=== PATIENT | female | born 1960 | race Caucasian/White ===

== ENCOUNTER → 2017-06-27 15:51 | Outpatient (CLI) | payer BC | END | disposition home or self-care (01) | LOC: D.US 15:51 | DX: R80.9 Proteinuria, unspecified (principal) ==

== ENCOUNTER 2018-05-26 15:02 | Emergency (ER) | payer BC ==
[~2018-05-26] VITALS: Ht 157.5 cm; Wt 63.6 kg
[2018-05-26 15:32] VITALS: Ht 157.5 cm; Wt 63.6 kg
[2018-05-26] MEDS ORDERED: CIMZIA400 MG/2 M SQ (15:34)
[2018-05-26] MEDS ORDERED: SPIRIVA RESPIMAT4 G1 INH (15:34)
[2018-05-26] MEDS ORDERED: ARAVA10 MG PO (15:34)
[2018-05-26] MEDS ORDERED: SINGULAIR10 MG PO (15:35)
[2018-05-26] MEDS ORDERED: HYZAAR 50-12.51 TAB PO (15:35)
[2018-05-26] MEDS ORDERED: CLARITIN 10 MG10 MG PO (15:35)
[2018-05-26] MEDS ORDERED: LIPITOR10 MG PO (15:36)
[2018-05-26] MEDS ORDERED: LYRICA25 MG PO (15:36)
[2018-05-26 16:02] LABS: BASOPHILS 0.9 % (0-2); EOSINOPHILS 5.5 % (0-7); HEMATOCRIT 40.6 % (36.0-48.0); IMMATURE GRANULOCYTES 0.4 % (0-5); LYMPHOCYTES 29.6 % (15-50); MCH 31.6 pg (26.0-34.0); MCHC 34.5 g/dL (31.0-37.0); MCV 91.6 fL (80.0-100.0); MEAN PLATELET VOLUME 10.5 fL (7.4-10.4); MONOCYTES 11.1 % (2-11); NEUTROPHILS 52.5 % (40-80); PLATELET COUNT 293 10x3/uL (130-400); RBC 4.43 10x6/uL (4.00-5.40); RDW 14.7 % (11.5-14.5); WBC 8.1 10x3/uL (4.8-10.8)
[2018-05-26 16:13] LABS: APPEARANCE CLEAR (CLEAR); BILIRUBIN NEGATIVE (NEGATIVE); COLOR YELLOW (YELLOW); GLUCOSE NEGATIVE (NEGATIVE); KETONE NEGATIVE (NEGATIVE); NITRITE NEGATIVE (NEGATIVE); PROTEIN NEGATIVE (NEGATIVE); UROBILINOGEN NORMAL (NORMAL)
[2018-05-26 16:17] LABS: ALBUMIN 3.6 g/dL (3.4-5.0); BILIRUBIN - TOTAL 0.32 mg/dL (0.2-1.3); CARBON DIOXIDE 31.6 mmol/L (21.0-32.0); CREATININE - SERUM 0.9 mg/dL (0.6-1.3); POTASSIUM - SERUM 3.6 mmol/L (3.5-5.1); PROTEIN - SERUM 7.8 g/dL (6.4-8.2)
[2018-05-26 16:24] LABS: BACTERIA FEW /hpf (NONE SEEN); EPITHELIAL CELLS 0-5 /hpf (0-5); RED CELLS - URINE 0-5 /hpf (0-5); WHITE CELLS - URINE 0-5 /hpf (0-5)
[2018-05-26 16:25] LABS: HYALINE CAST RARE /lpf (NONE SEEN)
[2018-05-26 16:53] LABS: AMYLASE - SERUM 61 U/L (25-115); LIPASE 234 U/L (73-393)
[2018-05-26] MEDS ORDERED: PROTONIX40 MG PO (18:35)
[2018-05-26] MEDS ORDERED: ZOFRAN4 MG PO (18:35)
[2018-05-26 19:08] VITALS: BP 145/90
== END 2018-05-26 19:09 | disposition home or self-care (01) ==
LOC: D.ER 15:02
PROVIDERS: Family Medicine
DX: R10.9 Unspecified abdominal pain (principal); K29.70 Gastritis, unspecified, without bleeding; M54.5 Low back pain; J44.9 Chronic obstructive pulmonary disease, unspecified; F17.200 Nicotine dependence, unspecified, uncomplicated